=== PATIENT | female | born 1985 | race American Indian/Alaskan Native ===

== ENCOUNTER 2016-10-01 16:41 | Outpatient (CLI) | payer MEDICAID ==
--- NOTE | 2016-10-01 17:12 | Emergency Department Report ---
Entered by MICHAEL PEDRAZA, acting as scribe for SUGAR MARTÍNEZ NP. Chief Complaint: Nausea/Vomiting/Diarrhea Stated Complaint: WEAK/NAUSEA/DIARRHEA/CANT EAT Time Seen by Provider: 10/01/16 16:59 - HPI History of Present Illness: 31 year old female who is non toxic appearing, in no acute distress presents with c/o N/V/D for 1 week. She states she is unable to tolerate PO intake. Notes right pelvic discomfort but denies abdominal pain. Pt states she is 30 weeks and was seen in office for routine OB appintment yesterday. Stated OBGYN stated normal exam. Patient also notes normal movements today. Denies vaginal bleeding, vaginal discharge. A0. - ROS Review of Systems: Reports N/V/D, right pelvic discomfort, normal movement. Denies abdominal pain, vaginal bleeding, vaginal discharge. - Exam Vital Signs: Vital Signs 10/01/16 16:45 Temperature 98.1 F Pulse Rate 75 Respiratory 20 Rate Blood Pressure 112/66 O2 Sat by Pulse 100 Oximetry Physical Exam: Constitutional: Non toxic appearing, NAD. Abdomen: Abdomen is gravid, non tender to palpation in all quadrants. Denies pelvic pain upon palpation. MSE screening note: Focused history and physical exam performed. Due to findings the following was ordered: CBC, CMP, serum HCG quantitative, UA , US OB ED Disposition for MSE Condition: Stable This documentation as recorded by the scribe,MICHAEL PEDRAZA,accurately reflects the service I personally performed and the decisions made by ,SUGAR MARTÍNEZ, JESENIA.
[2016-10-01 17:25] LABS: Basophils % (Auto) 0.6 % (0.0-1.8); Eosinophils % (Auto) 0.9 % (0.0-4.3); Mean Corpuscular HGB Conc 33 % (30-34); Mean Corpuscular Hemoglobin 28 pg (28-32); Mean Corpuscular Volume 84 fl (79-97); Platelet Count 378 K/mm3 (140-440); Red Blood Count 3.94 M/mm3 (3.65-5.03); Red Cell Distribution Width 13.2 % (13.2-15.2); White Blood Count 11.4 K/mm3 (4.5-11.0)
[2016-10-01 17:39] LABS: Alanine Aminotransferase 12 units/L (7-56); Albumin 3.8 g/dL (3.9-5); Albumin/Globulin Ratio 1.5 %; Alkaline Phosphatase 86 units/L (35-129); Anion Gap 18 mmol/L; Blood Urea Nitrogen 3 mg/dL (7-17); Calcium 9.3 mg/dL (8.4-10.2); Carbon Dioxide 20 mmol/L (22-30); Chloride 99.9 mmol/L (98-107); Glucose 97 mg/dL (65-100); Potassium 3.5 mmol/L (3.6-5.0); Sodium 134 mmol/L (137-145); Total Protein 6.3 g/dL (6.3-8.2)
[2016-10-01 18:07] LABS: Bacteria,Urine 1+ /HPF (Negative); Bilirubin,Urine NEG (Negative); Blood,Urine NEG (Negative); Ketones,Urine NEG (Negative); Leukocyte Esterase,Urine MOD (Negative); Mucus,Urine FEW /HPF; Nitrite,Urine NEG (Negative); Protein,Urine <15 mg/dL mg/dL (Negative); Urobilinogen,Urine < 2.0 mg/dL (<2.0); WBC,Urine < 1.0 /HPF (0.0-6.0)
--- NOTE | 2016-10-01 19:35 | Ultrasound Report ---
FINAL REPORT EXAM: US OB \T\gt; = 14 WEEKS FETUS HISTORY: pelvic pain TECHNIQUE: Standard full obstetrical ultrasound PRIORS: None. FINDINGS: LMP: 02/26/2016 clinical Age: 31 W 1d US Age (average) = 31 w 5d EFW (BPD,HC,AC,FL) = 1795 g 266 g (3 lbs 15oz. 9oz.) LMP EDC 12/02/2016 US EDC 11/28/2016 CI 78.0 (range 74 to 83) HC/AC 1.07 (range 0.96 to 1.17) FL/BPD 79.4% (range 71.2 to 87.2) FL/HC 21.5% (range 17.3 to 23.3) FL/AC 22.9.% (range 20.0 to 24.0) Age 2SD Mean W/d d mm BPD 31 weeks 3 days 22 7.82 HC 31 weeks 6 days 21 28.94 AC 31 weeks 1 day 21 27.1 FL 32 weeks 1 day 21 6.21 Presentation: Cephalic Activity: Monitored Situs: Normal Placental location: Posterior toward the fundus Cardiac motion: 145 BPM using M-mode doppler Heart (4 CH) : Present Umbilical cord: 3 vessel Bladder: Present Kidneys: Present stomach: Present Diaphragm: Present Spine: Present brain and skull: Present with normal anatomy femurs: Present Cord Insertion: Present Amniotic Fluid Volume: Adequate, VERONICA 12.7 cm Cervical Length: 4.6 cm IMPRESSION: Single intrauterine viable with an approximate age of 31 weeks 5 days.
[2016-10-01] MEDS ORDERED: LACTATED RINGERS 500 ML IV ONE (22:43)
[2016-10-01] MEDS ORDERED: LACTATED RINGERS 1,000 ML ONE (22:45)
[2016-10-01 23:19] VITALS: BP 107/56
[2016-10-01 23:32] LABS: Bilirubin,Urine NEG (Negative); Blood,Urine NEG (Negative); Ketones,Urine 80 mg/dL (Negative); Leukocyte Esterase,Urine NEG (Negative); Nitrite,Urine NEG (Negative); Protein,Urine <15 mg/dL mg/dL (Negative); Urobilinogen,Urine < 2.0 mg/dL (<2.0)
== END 2016-10-01 23:58 | disposition home or self-care (01) ==
LOC: ED 16:41 → EDBD 16:41 → TRG 16:41 → EDSTATUS 22:07 → TRG 22:08
PROVIDERS: ATTEND Obstetrics & Gynecology
DX: O26.893 Other specified pregnancy related conditions, third trimester (principal); R11.0 Nausea; R19.7 Diarrhea, unspecified; R53.1 Weakness; Z3A.31 31 weeks gestation of pregnancy
CPT/HCPCS: 36415; 59025; 76805; 80053; 81001; 84702; 85025; 96360; J7120